=== PATIENT | male | born 1960 | race African-American/Black ===

== ENCOUNTER 2019-03-28 15:12 | Emergency (ER) | payer OTHER ==
[~2019-03-28] VITALS: Ht 185.4 cm; Wt 99.8 kg
[2019-03-28 15:12] VITALS: BP 104/70
[2019-03-28] MEDS ORDERED: LORazepam Inj 2mg/ml 1ml IM ONE (15:45)
[2019-03-28] MEDS ORDERED: Morphine Sulfate 2mg/ml Inj(IV/IM USE ONLY) IM ONE (16:00)
[2019-03-28] MEDS ORDERED: Ketorolac 30mg Inj IM ONE (16:00)
--- NOTE | 2019-03-28 17:06 | Diagnostic Imaging Report ---
Indication: Back pain Technique: 3 views of the lumbar spine Comparison: None Findings:Exam is limited due to lack of true lateral view. Vertebral body heights are preserved. There is multilevel degenerative disc narrowing. There are multilevel proliferative changes. Grossly normal bony alignment. No definite acute fractures. Impression: No definite acute bony trauma Degenerative changes This agrees with the preliminary interpretation provided overnight by [facility].
--- NOTE | 2019-03-28 18:00 | Emergency Room Report ---
History of Present Illness General Chief Complaint: Back Pain-No Injury Source: Patient, EMS Present Illness HPI 58-year-old male presents to the emergency department complaining of 9 out of 10 severity low back pain x3 days. Patient reports that he had spinal fusion in 2006 and was seeing a spinal specialist however he stopped over a year ago because he did not agree with the treatment. He describes pain today as moderate and radiates across the lower back, He denies radiation Patient denies recent spinal procedures or history of neoplastic disease. Patient denies trauma or fall. Patient denies paresthesias, saddle anesthesia, urinary incontinence or urinary retention. Patient denies fevers or chills. He states he is homeless and he is primarily been laying out on the street for the past 3 days due to his pain. Allergies: Coded Allergies: No Known Allergies (Unverified , 03/28/19) Patient History Past Medical History: see triage record Past Surgical History: none Pertinent Family History: none Reviewed Nursing Documentation: PMH: Agreed; PSxH: Agreed Nursing Documentation-PMH Past Medical History: No History, Except For Hx Hypertension: Yes Hx Diabetes: Yes History Of Psychiatric Problem: Yes - ETOH Review of Systems All Other Systems: negative except mentioned in HPI Physical Exam Vital Signs Date Time Temp Pulse Resp B/P (MAP) Pulse Ox O2 Delivery O2 Flow Rate FiO2 03/28/19 15:05 98.8 80 20 104/70 (81) 98 Room Air Sp02 EP Interpretation: reviewed, normal General Appearance: no apparent distress, alert, GCS 15, non-toxic, mild distress, obese Head: normocephalic, atraumatic Eyes: bilateral eye normal inspection, bilateral eye PERRL ENT: hearing grossly normal, normal voice Neck: full range of motion, no bony tend Respiratory: lungs clear, normal breath sounds, no wheezing, speaking full sentences Cardiovascular #1: regular rate, rhythm Gastrointestinal: non tender, soft Genitourinary: no CVA tenderness Musculoskeletal: back normal, gait/station normal, normal range of motion, tender - Mild Tenderness to palpation to paraspinal muscles of the lower back with some midline tenderness. No obvious Deformities, no palpable step-off, no erythema, notable post surgical scar. Neurologic: alert, oriented x3, responsive, motor strength/tone normal, sensory intact, speech normal, other - no evidence on incontinence. Pt. is ambulatory without assistance., grossly normal Psychiatric: judgement/insight normal Skin: normal color Lymphatic: no adenopathy Medical Decision Making PA Attestation Dr. Pavon Is my supervising Physician whom patient management has been discussed with. Homeless Attestation I, The treating provider, Ruth RAI, has assessed and agrees that patient is medically stable for discharge to an outpatient disposition. Diagnostic Impression: Primary Impression: Back pain Qualified Codes: M54.5 - Low back pain; G89.29 - Other chronic pain ER Course 58-year-old male presents to the emergency department complaining of 9 out of 10 severity low back pain x3 days. Patient reports that he had spinal fusion in 2006 and was seeing a spinal specialist however he stopped over a year ago because he did not agree with the treatment. He describes pain today as moderate and radiates across the lower back, He denies radiation Patient denies recent spinal procedures or history of neoplastic disease. Patient denies trauma or fall. Patient denies paresthesias, saddle anesthesia, urinary incontinence or urinary retention. Patient denies fevers or chills. He states he is homeless and he is primarily been laying out on the street for the past 3 days due to his pain. Ddx considered: epidural abscess, fracture, sprain/strain, meningitis, spinal chord injury, sciatica, cauda equina, Pyelonephritis, renal calculi just to name a few. Vital signs reviewed and are WNL during ED visit. Pt. is afebrile with no signs of infection -Patient was able to sit up, stand, ambulate from ambulance gurney over to ED gurney without assistance. No new symptoms, and denies recent trauma. No saddle anesthesia noted, Pt. denies incontinence, there is no evidence of incontinence Neurovascular is intact ROM is limited due to pain and poor patient cooperation * Mild Tenderness to palpation to paraspinal muscles of the lower back with some midline tenderness. *Pt. describes pain today as moderate and radiates across the lower back, He denies radiation. ORDERS: -X-ray L-Spine: WNL INTERVENTIONS: - 6mg MOrphine IM -Toradol IM -Benadryl 25mg PO D/W Pt. that for further pain management is it recommended to consult PCP or a Chronic Pain management doctor. A provider who can safely prescribe controlled substances with close follow up. DISCHARGE: At this time pt. is stable for d/c to home. Will provide printed patient care instructions, and any necessary prescriptions. Care plan and follow up instructions have been discussed with the patient prior to discharge. Other X-Ray Diagnostic Results Other X-Ray Diagnostic Results : X-Ray ordered: L-Spine # of Views/Limited Vs Complete: 3 View Indication: Pain EP Interpretation: Yes PA Xray: Interpretation reviewed, by supervising MD, and agrees with findings. Interpretation: no dislocation, no soft tissue swelling, no fractures Impression: No acute disease - Per radiologist-unremarkable image study. Electronically Signed by: Ruth Pedroza PA-C Last Vital Signs Date Time Temp Pulse Resp B/P (MAP) Pulse Ox O2 Delivery O2 Flow Rate FiO2 03/28/19 15:12 98.8 80 20 104/70 98 Room Air Disposition: HOME, SELF-CARE Condition: Stable Scripts Methocarbamol* (ROBAXIN-750*) 750 Mg Tablet 750 MG PO TID for 7 Days, #21 TAB 0 Refills Prov: Ruth Pedroza 03/28/19 Referrals: [facility],REFERRING (PCP) Patient Instructions: Back Pain, Adult Additional Instructions: Take medications as directed. Follow up with an SENIOR GIS ANALYST in 3-5 days, even if your symptoms have resolved. If symptoms persist MRI may be required at the discretion of your PCP or Ortho Specialist. --Please review list of primary care clinics, if you do not already have a primary care provider who can give you an Orthopedic Referral. Return sooner to ED if new symptoms occur, or current symptoms become worse. Do not drink alcohol, drive, or operate heavy machinery while taking Tramadol as this may cause drowsiness. - Please note that this Emergency Department Report was dictated using [employer]certified medical transcriptionist technology software, occasionally this can lead to erroneous entry secondary to interpretation by the dictation equipment. Ruth Pedroza Mar 28, 2019 18:00
[2019-03-28] MEDS ORDERED: ROBAXIN-750750 MG PO (18:08)
[2019-03-28 19:01] VITALS: BP 114/75
[2019-03-28 21:05] VITALS: BP 108/76
[2019-03-28 23:07] VITALS: BP 112/80
[2019-03-29 02:16] VITALS: BP 107/74
[2019-03-29 03:36] VITALS: BP 110/72
[2019-03-29 05:20] VITALS: BP 123/70
[2019-03-29] MEDS ORDERED: METFORMIN HCL500 M1 ORAL (12:57)
[2019-03-29] MEDS ORDERED: LISINOPRIL5 MG ORAL (12:57)
== END 2019-03-29 05:20 | disposition home or self-care (01) ==
LOC: EDBD 15:12 → EMR 16:10
DX: M54.5 Low back pain (principal); G89.29 Other chronic pain; I10 Essential (primary) hypertension; E11.9 Type 2 diabetes mellitus without complications; Z59.0 Homelessness
CPT/HCPCS: 72020; 96372; 99283; J1885; J2270

== ENCOUNTER 2019-03-29 09:58 | Emergency (ER) | payer OTHER ==
[~2019-03-29] VITALS: Ht 182.9 cm; Wt 113.4 kg
[~2019-03-29 09:58] MED LIST: ROBAXIN-750750 MG PO
[2019-03-29 10:10] VITALS: BP 200/120
--- NOTE | 2019-03-29 10:13 | NUR ---
ED Nurse Note: pt was brought in by ambulance from the street c/o dizziness, pt stated it started last night and he is not been compliant with htn medication. pt was seen in the ed last night and was dc this morning for back pain. pt appears to be untidy, came in with walker. pt noted to have high blood pressure upon ed arrival. ermd on bedside. will continue to monitor
--- NOTE | 2019-03-29 10:15 | Emergency Room Report ---
History of Present Illness General Chief Complaint: General Complaint Source: Patient Present Illness HPI Patient presents with reports of some dizziness reports that he is supposed to be taking metformin and losartan however has been out of his medications Denies any headache denies any chest pain Patient reports increased nausea denies any abdominal pain denies any diarrhea or fevers Patient had not reported this however on review of medical records was here recently with complaints of low back pain Allergies: Coded Allergies: No Known Allergies (Unverified , 03/28/19) Patient History Past Medical History: see triage record Reviewed Nursing Documentation: PMH: Agreed; PSxH: Agreed Nursing Documentation-PMH Hx Hypertension: Yes Hx Diabetes: Yes Review of Systems All Other Systems: negative except mentioned in HPI Physical Exam Vital Signs Date Time Temp Pulse Resp B/P (MAP) Pulse Ox O2 Delivery O2 Flow Rate FiO2 03/29/19 09:49 98.1 100 18 200/120 (146) 98 Room Air Sp02 EP Interpretation: reviewed, normal General Appearance: well appearing, no apparent distress - However mildly disheveled Head: normocephalic, atraumatic Eyes: bilateral eye PERRL, bilateral eye EOMI ENT: hearing grossly normal, normal pharynx, TMs + canals normal, uvula midline Neck: full range of motion, supple, no meningismus, no bony tend Respiratory: lungs clear, normal breath sounds, no rhonchi, no respiratory distress, no retraction, no accessory muscle use Cardiovascular #1: normal peripheral pulses, regular rate, rhythm, no edema, no gallop, no JVD, no murmur Gastrointestinal: normal bowel sounds, non tender, soft, no mass, no organomegaly, non-distended, no guarding, no hernia, no pulsatile mass, no rebound Genitourinary: no CVA tenderness Musculoskeletal: normal inspection Neurologic: oriented x3, responsive, acid bath mixer III-XII nml as tested, motor strength/ tone normal, sensory intact Psychiatric: mood/affect normal Skin: no rash Lymphatic: normal inspection, no adenopathy Medical Decision Making Diagnostic Impression: Primary Impression: Hypertension Additional Impression: Dizziness ER Course Patient had previous presentation with complaints of low back pain Patient does not complain of any back pain at this time However complained of some dizziness patient is noncompliant with his diabetic and hypertensive medication Patient remains asymptomatic here initially did present somewhat hypertensive However blood pressure has improved appropriately Multiple differentials including but not limited to cardiac vascular and, neurological emergencies entertained I did obtain CT head that does not show any acute pathology Blood work also at baseline levels Patient remains asymptomatic he did have one episode of vomiting here which was provided Zofran for And on repeat evaluation stable for close outpatient follow-up Labs Test 03/29/19 10:24 White Blood Count 5.1 K/UL (4.8-10.8) Red Blood Count 4.37 M/UL (4.70-6.10) Hemoglobin 12.8 G/DL (14.2-18.0) Hematocrit 38.9 % (42.0-52.0) Mean Corpuscular Volume 89 FL (80-99) Mean Corpuscular Hemoglobin 29.4 PG (27.0-31.0) Mean Corpuscular Hemoglobin Concent 33.0 G/DL (32.0-36.0) Red Cell Distribution Width 13.8 % (11.6-14.8) Platelet Count 214 K/UL (150-450) Mean Platelet Volume 5.3 FL (6.5-10.1) Neutrophils (%) (Auto) % (45.0-75.0) Lymphocytes (%) (Auto) % (20.0-45.0) Monocytes (%) (Auto) % (1.0-10.0) Eosinophils (%) (Auto) % (0.0-3.0) Basophils (%) (Auto) % (0.0-2.0) Differential Total Cells Counted 100 Neutrophils % (Manual) 89 % (45-75) Lymphocytes % (Manual) 6 % (20-45) Monocytes % (Manual) 4 % (1-10) Eosinophils % (Manual) 0 % (0-3) Basophils % (Manual) 1 % (0-2) Band Neutrophils 0 % (0-8) Platelet Estimate Adequate Platelet Morphology Normal Red Blood Cell Morphology Normal Sodium Level 145 MMOL/L (136-145) Potassium Level 4.1 MMOL/L (3.5-5.1) Chloride Level 104 MMOL/L (98-107) Carbon Dioxide Level 25 MMOL/L (21-32) Anion Gap 16 mmol/L (5-15) Blood Urea Nitrogen 24 mg/dL (7-18) Creatinine 1.2 MG/DL (0.55-1.30) Estimat Glomerular Filtration Rate > 60 mL/min (>60) Glucose Level 153 MG/DL (74-106) Calcium Level 8.7 MG/DL (8.5-10.1) Total Bilirubin 1.4 MG/DL (0.2-1.0) Direct Bilirubin 0.4 MG/DL (0.0-0.3) Aspartate Amino Transf (AST/SGOT) 86 U/L (15-37) Alanine Aminotransferase (ALT/SGPT) 81 U/L (12-78) Alkaline Phosphatase 79 U/L (46-116) Total Protein 7.7 G/DL (6.4-8.2) Albumin 3.6 G/DL (3.4-5.0) Globulin 4.1 g/dL Albumin/Globulin Ratio 0.9 (1.0-2.7) EKG Diagnostic Results Rate: normal Rhythm: NSR ST Segments: no acute changes Rhythm Strip Diag. Results EP Interpretation: yes Rate: 77 Rhythm: NSR, no PVC's, no ectopy CT/MRI/US Diagnostic Results CT/MRI/US Diagnostic Results : Impression CT headImpression: Chronic and age-related changes Negative for acute intracranial bleed or mass effect Old left parietal infarct Left parietal region scalp soft tissue thickening. Correlate with any clinical history of trauma Last Vital Signs Date Time Temp Pulse Resp B/P (MAP) Pulse Ox O2 Delivery O2 Flow Rate FiO2 03/29/19 10:10 100 18 Room Air 03/29/19 10:10 98.1 200/120 98 Status: improved Disposition: HOME, SELF-CARE Condition: Improved Scripts Lisinopril (LISINOPRIL*) 5 Mg Tablet 5 MG ORAL DAILY, #12 TAB Prov: Sue Boucher DO 03/29/19 Metformin Hcl* (METFORMIN HCL*) 500 Mg Tablet 500 MG ORAL TWICE A DAY for 7 Days, TAB Prov: Sue Boucher DO 03/29/19 Additional Instructions: Patient is provided with the discharge instructions notified to follow up with primary doctor in the next 2-3 days otherwise return to the er with any worsening symptoms. Please note that this report is being documented using [employer] technology. This can lead to erroneous entry secondary to incorrect interpretation by the dictating instrument. Sue Boucher DO Mar 29, 2019 10:15
--- NOTE | 2019-03-29 10:28 | NUR ---
ED Nurse Note: blood drawn and was sent to lab. pt medicated as ordered. pt went to ct with tech
[2019-03-29 10:47] LABS: HEMATOCRIT 38.9 % (42.0-52.0); HEMOGLOBIN 12.8 G/DL (14.2-18.0); MEAN CORPUSCULAR VOLUME 89 FL (80-99); PLATELET COUNT 214 K/UL (150-450); RED BLOOD COUNT 4.37 M/UL (4.70-6.10); RED CELL DISTRIBUTION WIDTH 13.8 % (11.6-14.8); WHITE BLOOD COUNT 5.1 K/UL (4.8-10.8)
--- NOTE | 2019-03-29 11:02 | Diagnostic Imaging Report ---
Indications: Headache, vomiting Technique: Spiral acquisitions obtained through the brain. Angled axial and coronal 5 x 5 mm slices were reconstructed. Total dose length product 1495.73 mGycm. CTDI vol(s) 70.38 mGy. Dose reduction achieved using automated exposure control Comparison: None. Findings: There is age-related prominence of the ventricles and extra axial CSF spaces. There is fairly extensive periventricular deep white matter low-attenuation. No acute intracranial hemorrhage or edema. No mass effect nor midline shift. Otherwise normal bautista-white differentiation. There is some focal encephalomalacia in the left posterior parietal cortex consistent with an old cortical infarct. Intact calvarium. The mastoids are clear. Visualized orbits and sinuses are unremarkable. There is minimal scalp soft tissue thickening in the left parietal region Impression: Chronic and age-related changes Negative for acute intracranial bleed or mass effect Old left parietal infarct Left parietal region scalp soft tissue thickening. Correlate with any clinical history of trauma The CT scanner at [facility] is accredited by the [employer] and the scans are performed using protocols designed to limit radiation exposure to as low as reasonably achievable to attain images of sufficient resolution adequate for diagnostic evaluation.
[2019-03-29 11:09] LABS: ANION GAP 16 mmol/L (5-15); BLOOD UREA NITROGEN 24 mg/dL (7-18); CALCIUM 8.7 MG/DL (8.5-10.1); CARBON DIOXIDE 25 MMOL/L (21-32); CHLORIDE 104 MMOL/L (98-107); CREATININE 1.2 MG/DL (0.55-1.30); POTASSIUM 4.1 MMOL/L (3.5-5.1); SODIUM 145 MMOL/L (136-145)
[2019-03-29 11:22] LABS: ALANINE AMINOTRANSFERASE 81 U/L (12-78); ALBUMIN 3.6 G/DL (3.4-5.0); ALBUMIN/GLOBULIN RATIO 0.9 (1.0-2.7); ALKALINE PHOSPHATASE 79 U/L (46-116); ASPARTATE AMINO TRANSFERASE 86 U/L (15-37); BILIRUBIN,DIRECT 0.4 MG/DL (0.0-0.3); BILIRUBIN,TOTAL 1.4 MG/DL (0.2-1.0)
[2019-03-29] MEDS ORDERED: Lisinopril 10mg tab ORAL ONE (12:15)
[2019-03-29] MEDS ORDERED: METFORMIN HCL500 M1 ORAL (12:57)
[2019-03-29] MEDS ORDERED: LISINOPRIL5 MG ORAL (12:57)
[2019-03-29 13:10] VITALS: BP 168/100
[2019-03-29 13:11] VITALS: BP 168/100
--- NOTE | 2019-03-29 13:11 | NUR ---
Homeless Discharge: Patient is being discharged from medical care. Awake, alert and oriented x3. After care instructions, including referral to community resources were given. Patient verbalized understanding of After care instructions; at this time patient does not request medications, equipment or placement. Patient signed patient consent in the medical record for patient destination upon discharge. All medical devices such as IV and ID band were removed. Patient ambulated out with all personal belongings with steady gait.
== END 2019-03-29 13:11 | disposition home or self-care (01) ==
LOC: EDBD 09:58 → EMR 10:40
DX: I10 Essential (primary) hypertension (principal); R42 Dizziness and giddiness; E11.9 Type 2 diabetes mellitus without complications; Z79.84 Long term (current) use of oral hypoglycemic drugs
CPT/HCPCS: 36415; 70450; 80053; 82248; 85007; 85025; 99284